=== PATIENT | female | born 1970 | race Caucasian/White ===

== ENCOUNTER 2016-08-01 22:54 | Emergency (ER) | payer BC ==
[~2016-08-01] VITALS: Ht 165.1 cm; Wt 76.5 kg
[2016-08-01 23:06] VITALS: Ht 165.1 cm; Wt 76.5 kg
[2016-08-01] MEDS ORDERED: FIORICET PO (23:36)
--- NOTE | 2016-08-01 23:46 | ERD ---
ER Documentation Chief Complaint Date/Time DATE: 08/01/16 TIME: 23:43 Chief Complaint BP high intermittantly x 3 months, takes iron for anemia HPI 46-year-old female presents here in emergency department for an of elevated blood pressure and headache for 3 months. Patient states that she is undergoing a lot of stress lately, it causes her to have headache and elevated blood pressure, at this time, patient denies any headache. Patient does describe the headache as throbbing pain, 4/10 scale, accompanied with elevated blood pressure. Patient denies any numbness or tingling. Patient denies any blurry vision. Patient denies any focal weakness. Patient denies any changes in balance or memory. ROS All systems reviewed and are negative except as per history of present illness. Medications Home Meds Active Scripts Acetamin/Butalbital/Caffeine* (Fioricet*) [id number] Tab, 1 TAB PO Q6H Y for PAIN, #30 TAB Prov:EMMY MICHAEL [employer] 08/01/16 Allergies Allergies: Coded Allergies: No Known Allergy (Unverified , 09/08/12) PMhx/Soc History of Surgery: Yes () Anesthesia Reaction: No Hx Neurological Disorder: No Hx Respiratory Disorders: No Hx Cardiac Disorders: No Hx Psychiatric Problems: No Hx Miscellaneous Medical Probl: Yes (HIGH CHOLESTROL,ANEMIA) Hx Alcohol Use: No Hx Substance Use: No Hx Tobacco Use: No FmHx Family History: No coronary disease, No diabetes, No other Physical Exam Vitals Vital Signs Date Time Temp Pulse Resp B/P Pulse Ox O2 Delivery O2 Flow Rate FiO2 08/01/16 23:06 96.8 71 20 152/78 99 Physical Exam GENERAL: The patient is well developed and appropriate for usual state of health, in no apparent distress. CHEST: Clear to auscultation bilaterally. There are no rales, wheezes or rhonchi. HEART: Regular rate and rhythm. No murmurs, clicks, rubs or gallops. No S3 or S4. ABDOMEN: Soft, nontender and nondistended. Good bowel sounds. No rebound or guarding. No gross peritonitis. No gross organomegaly or masses. No Curry sign or McBurney point tenderness. BACK: No midline or flank tenderness. EXTREMITIES: Equal pulses bilaterally. There is no peripheral clubbing, cyanosis or edema. No focal swelling or erythema. Full range of motion. Grossly neurovascularly intact. NEURO: Alert and oriented. Cranial nerves 2-12 intact. Motor strength in all 4 extremities with 5/5 strength. Sensation grossly intact. Normal speech and gait. Negative Romberg sign. Negative pronator drift. SKIN: There is no apparent rash or petechia. The skin is warm and dry. HEMATOLOGIC AND LYMPHATIC: There is no evidence of excessive bruising or lymphedema. No gross cervical, axillary, or inguinal lymphadenopathy. Procedures/MDM Medical Decision Making: Patient headache and elevated blood pressure may be stress related. There is low suspicion for neurological emergencies at this time since patients neurologic exam is normal. Patient did not have any altered level consciousness, vomiting, changes in balance or memory after incident. Ct scan of the brain that indicated at this time. Patient's blood pressure was elevated (>120/80) but appears stable without evidence of hypertension emergency or urgency. The patient was counseled about the risks of hypertension and urged to pursue outpatient monitoring and therapy within a week with their primary care physician. Departure Diagnosis: Primary Impression: Headache Headache type: unspecified Headache chronicity pattern: acute headache Intractability: not intractable Qualified Code: R51 - Acute nonintractable headache, unspecified headache type Additional Impression: Elevated blood pressure reading Condition: Stable Patient Instructions: Self-Care for Headaches, High Blood Pressure ( Hypertension) Additional Instructions: Patient's blood pressure was elevated (>120/80) but appears stable without evidence of hypertension emergency or urgency. The patient was counseled about the risks of hypertension and urged to pursue outpatient monitoring and therapy within a week with their primary care physician. EMMY MICHAEL NP Aug 01, 2016 23:46
== END 2016-08-01 23:46 | disposition home or self-care (01) ==
LOC: FTE 22:54
DX: R51 Headache (principal); R03.0 Elevated blood-pressure reading, without diagnosis of hypertension
CPT/HCPCS: 99283